=== PATIENT | female | born 1995 | race Two or more races ===

== ENCOUNTER 2024-05-21 19:42 | Inpatient (IN) | payer MEDICAID ==
[2024-05-21] MEDS ORDERED: Sodium Chloride 0.9% 10 ML Syringe FLUSH PRN (20:41)
[2024-05-21] MEDS ORDERED: Sodium Chloride 0.9% 2.5 ML Syringe FLUSH PRN (20:41)
[2024-05-21] MEDS ORDERED: PHENobarbitaL sodium 260 MG in Sodium Chloride 0.9% 100 ML IV ONE (20:50)
[2024-05-21] MEDS: Ketorolac 30 MG/ML SDV IVPUSH ONE (21:03)
[2024-05-21] MEDS: Ondansetron 4 MG/2 ML SDV IVPUSH ONE (21:03)
[2024-05-21] MEDS: Sodium Chloride 0.9% 1,000 ML IV ONE (21:03)
[2024-05-21] MEDS: PHENobarbitaL sodium 130 MG in Sodium Chloride 0.9% 100 ML IV ONE (21:08)
[2024-05-21 21:16] LABS: AMPHETAMINES SCREEN, URINE NEGATIVE (CUTOFF=500); BARBITURATE SCREEN,URINE NEGATIVE (CUTOFF=200); BENZODIAZEPINES SCREEN,URINE PRESUMPTIVE POSITIVE (CUTOFF=150); BILIRUBIN,URINE NEGATIVE (NEGATIVE); BUPRENORPHINE SCREEN,URINE PRESUMPTIVE POSITIVE (CUTOFF=10); COLOR,URINE YELLOW; GLUCOSE,URINE NEGATIVE (NEGATIVE); KETONES,URINE NEGATIVE (NEGATIVE); LEUKOCYTE ESTERASE,URINE TRACE (NEGATIVE); METHADONE SCREEN, URINE NEGATIVE (CUTOFF=200); METHAMPHETAMINES SCREEN, URINE NEGATIVE (CUTOFF=500); NITRITE,URINE NEGATIVE (NEGATIVE); OCCULT BLOOD,URINE NEGATIVE (NEGATIVE); OXYCODONE SCREEN,URINE NEGATIVE (CUT0FF=100); PCP SCREEN,URINE NEGATIVE (CUTOFF=25); PROTEIN,URINE NEGATIVE (NEGATIVE); THC SCREEN,URINE 20 NG/ML NEGATIVE (CUTOFF=50); UROBILINOGEN,URINE 0.2 EU/dL (<2.0)
[2024-05-21 21:18] LABS: APPEARANCE,URINE SLT CLOUDY
[2024-05-21 21:19] LABS: BACTERIA,URINE FEW (NEGATIVE); EPITHELIAL CELLS,URINE MODERATE (NONE-FEW); RBC,URINE 0-2 (0-2/HPF)
[2024-05-21] MEDS: PHENobarbital Sodium 130 MG/ML SDV IVPUSH ONE ×3 (21:20→22:26)
[2024-05-21 21:31] LABS: BASOPHILS ABSOLUTE AUTO 0.03 K/uL (0.00-0.20); BASOPHILS PERCENT AUTO 0.6 % (0.0-1.0); EOSINOPHILS ABSOLUTE AUTO 0.03 K/uL (0.00-0.45); EOSINOPHILS PERCENT AUTO 0.6 % (0.0-6.0); HEMATOCRIT 43.8 % (37.0-47.0); LYMPHOCYTES ABSOLUTE AUTO 2.06 K/uL (1.00-4.80); LYMPHOCYTES PERCENT AUTO 39.4 % (24.0-44.0); MEAN CORPUSCULAR HEMOGLOBIN 29.2 pg (28.0-32.0); MEAN CORPUSCULAR HGB CONC 34.2 g/dL (32.0-36.0); MEAN CORPUSCULAR VOLUME 85.4 fL (83.0-99.0); MEAN PLATELET VOLUME 8.8 fL (9.4-12.3); MONOCYTES ABSOLUTE AUTO 0.46 K/uL (0.00-0.80); MONOCYTES PERCENT AUTO 8.8 % (0.0-8.0); NEUTROPHILS ABSOLUTE AUTO 2.65 K/uL (1.80-7.70); NEUTROPHILS PERCENT AUTO 50.6 % (41.0-71.0); PLATELET COUNT,PLT 325 K/uL (150-400); RED BLOOD CELL COUNT 5.13 M/uL (4.10-5.30); WHITE BLOOD CELL COUNT,WBC 5.23 K/uL (3.9-11.3)
[2024-05-21 21:44] LABS: BILIRUBIN TOTAL 0.4 mg/dL (0.2-1.0); CARBON DIOXIDE,CO2 23.8 mmol/L (21.0-32.0); CREATININE 0.7 mg/dL (0.6-1.0); EST CRCL DRUG DOSING (CG) 102.4 mL/min; MAGNESIUM 1.5 mg/dL (1.8-2.4); POTASSIUM,K 3.2 mmol/L (3.5-5.1)
[2024-05-21] MEDS: Thiamine 200 MG/2 ML MDV IVPUSH ONE (22:26)
[2024-05-21] MEDS: Magnesium Sulfate/Water Premix 2 GM in Premix Bag 1 BAG IV ONE (22:26)
[2024-05-22] MEDS: Pantoprazole 40 MG Vial ONE (00:25)
[2024-05-22] MEDS: LORazepam 2 MG/ML SDV IVPUSH PRN (00:25)
[2024-05-22] MEDS: Sodium Chloride 0.9% 1,000 ML IV SCH (00:27)
[2024-05-22] MEDS: Potassium Chloride 10 MEQ in Premix Bag 1 BAG IV SCH (02:10)
[2024-05-22] MEDS: Enoxaparin 40 MG/0.4 ML Syringe SUBCUT SCH (02:12)
[2024-05-22] MEDS: PHENobarbital Sodium 130 MG/ML SDV IVPUSH PRN (04:26)
[2024-05-22 07:06] LABS: ALBUMIN 3.1 g/dL (3.4-5.0); BILIRUBIN TOTAL 0.5 mg/dL (0.2-1.0); CARBON DIOXIDE,CO2 24.3 mmol/L (21.0-32.0); CREATININE 0.7 mg/dL (0.6-1.0); EST CRCL DRUG DOSING (CG) 98.09 mL/min; MAGNESIUM 1.6 mg/dL (1.8-2.4); PHOSPHORUS 3.4 mg/dL (2.6-4.7); PROTEIN TOTAL,TP 6.1 g/dL (6.4-8.2)
[2024-05-22] MEDS ORDERED: PHENobarbital 32.4 MG Tab PO PRN (07:07)
[2024-05-22] MEDS ORDERED: PHENobarbitaL sodium 260 MG in Sodium Chloride 0.9% 100 ML IV PRN (07:08)
[2024-05-22] MEDS: PHENobarbital 32.4 MG Tab PO PRN (08:41)
[2024-05-22] MEDS: Folic Acid 1 MG Tab PO SCH (08:42)
[2024-05-22] MEDS: Thiamine 200 MG/2 ML MDV IVPUSH SCH (08:44)
[2024-05-22] MEDS: Pantoprazole 40 MG in Sodium Chloride 0.9% 10 ML IVPUSH SCH (08:47)
[2024-05-22] MEDS: Magnesium Sulfate/Water Premix 2 GM in Premix Bag 1 BAG IV ONE (08:50)
[2024-05-22] MEDS: BUPROPION SR 150 MG TABLET PO SCH (09:05)
[2024-05-22] MEDS: Diphtheria,Pertussis(Acell),Tetanus Vaccine 0.5 ML Syringe IM ONE (09:18)
[2024-05-22] MEDS: FLU (Flulaval Triv) 24-25(6MOS UP)/PF 45 MCG/0.5 ML Syringe IM ONE (09:18)
[2024-05-22] MEDS: Buprenorphine/Naloxone 8-2 MG Tab.SL SL SCH (11:09)
[2024-05-22] MEDS ORDERED: Buprenorphine/Naloxone 8-2 MG Tab.SL SL SCH (14:00)
[2024-05-22] MEDS ORDERED: Pantoprazole 40 MG in Sodium Chloride 0.9% 10 ML IVPUSH ONE (23:50)
[2024-05-23] MEDS: PHENobarbital 32.4 MG Tab PO PRN (02:48)
[2024-05-23 06:17] LABS: BASOPHILS ABSOLUTE AUTO 0.03 K/uL (0.00-0.20); BASOPHILS PERCENT AUTO 0.6 % (0.0-1.0); EOSINOPHILS ABSOLUTE AUTO 0.09 K/uL (0.00-0.45); EOSINOPHILS PERCENT AUTO 1.9 % (0.0-6.0); HEMATOCRIT 37.9 % (37.0-47.0); HEMOGLOBIN 12.6 g/dL (12.0-16.0); LYMPHOCYTES ABSOLUTE AUTO 1.66 K/uL (1.00-4.80); LYMPHOCYTES PERCENT AUTO 34.4 % (24.0-44.0); MEAN CORPUSCULAR HEMOGLOBIN 29.4 pg (28.0-32.0); MEAN CORPUSCULAR HGB CONC 33.2 g/dL (32.0-36.0); MEAN CORPUSCULAR VOLUME 88.3 fL (83.0-99.0); MEAN PLATELET VOLUME 9.9 fL (9.4-12.3); MONOCYTES ABSOLUTE AUTO 0.36 K/uL (0.00-0.80); MONOCYTES PERCENT AUTO 7.5 % (0.0-8.0); NEUTROPHILS ABSOLUTE AUTO 2.68 K/uL (1.80-7.70); NEUTROPHILS PERCENT AUTO 55.6 % (41.0-71.0); PLATELET COUNT,PLT 218 K/uL (150-400); RED BLOOD CELL COUNT 4.29 M/uL (4.10-5.30); WHITE BLOOD CELL COUNT,WBC 4.82 K/uL (3.9-11.3)
[2024-05-23 07:04] LABS: BILIRUBIN TOTAL 0.4 mg/dL (0.2-1.0); CALCIUM 8.2 mg/dL (8.5-10.1); CARBON DIOXIDE,CO2 23.9 mmol/L (21.0-32.0); CREATININE 0.8 mg/dL (0.6-1.0); EST CRCL DRUG DOSING (CG) 85.83 mL/min; MAGNESIUM 1.5 mg/dL (1.8-2.4); PHOSPHORUS 3.5 mg/dL (2.6-4.7); POTASSIUM,K 4.4 mmol/L (3.5-5.1); PROTEIN TOTAL,TP 6.1 g/dL (6.4-8.2)
[2024-05-23] MEDS ORDERED: Sodium Chloride 0.9% 2.5 ML Syringe FLUSH PRN (09:31)
[2024-05-23] MEDS ORDERED: Sodium Chloride 0.9% 10 ML Syringe FLUSH PRN (09:31)
[2024-05-23] MEDS: LORazepam 0.5 MG Tab PO ONE (09:57)
[2024-05-23] MEDS: Magnesium Sulfate/Water Premix 4 GM in Premix Bag 1 BAG IV ONE (09:58)
[2024-05-23] MEDS: Sucralfate Suspension 1 GM/10 ML Cup PO SCH (13:44)
[2024-05-24 05:32] LABS: BASOPHILS ABSOLUTE AUTO 0.02 K/uL (0.00-0.20); BASOPHILS PERCENT AUTO 0.4 % (0.0-1.0); EOSINOPHILS ABSOLUTE AUTO 0.15 K/uL (0.00-0.45); HEMATOCRIT 41.3 % (37.0-47.0); HEMOGLOBIN 13.7 g/dL (12.0-16.0); IMMATURE GRAN ABSOLUTE AUTO 0.01 K/uL (0.00-0.05); IMMATURE GRAN PERCENT AUTO 0.2 % (0.0-0.4); LYMPHOCYTES ABSOLUTE AUTO 1.47 K/uL (1.00-4.80); LYMPHOCYTES PERCENT AUTO 29.3 % (24.0-44.0); MEAN CORPUSCULAR HEMOGLOBIN 29.1 pg (28.0-32.0); MEAN CORPUSCULAR HGB CONC 33.2 g/dL (32.0-36.0); MEAN CORPUSCULAR VOLUME 87.9 fL (83.0-99.0); MEAN PLATELET VOLUME 9.4 fL (9.4-12.3); NEUTROPHILS ABSOLUTE AUTO 2.87 K/uL (1.80-7.70); NEUTROPHILS PERCENT AUTO 57.1 % (41.0-71.0); PLATELET COUNT,PLT 261 K/uL (150-400); WHITE BLOOD CELL COUNT,WBC 5.02 K/uL (3.9-11.3)
[2024-05-24 05:58] LABS: A/G RATIO 0.9 (0.9-1.6); ALBUMIN 3.2 g/dL (3.4-5.0); BILIRUBIN TOTAL 0.4 mg/dL (0.2-1.0); CALCIUM 9.2 mg/dL (8.5-10.1); CARBON DIOXIDE,CO2 28.9 mmol/L (21.0-32.0); CREATININE 0.7 mg/dL (0.6-1.0); EST CRCL DRUG DOSING (CG) 98.09 mL/min; MAGNESIUM 1.8 mg/dL (1.8-2.4); PHOSPHORUS 4.5 mg/dL (2.6-4.7); POTASSIUM,K 4.3 mmol/L (3.5-5.1); PROTEIN TOTAL,TP 6.9 g/dL (6.4-8.2)
[2024-05-24] MEDS: Thiamine 100 MG Tab PO SCH (09:33)
[2024-05-24] MEDS: Polyethylene Glycol 3350 Powder 17 GM Packet PO SCH (13:54)
[2024-05-24] MEDS ORDERED: Pantoprazole 40 MG in Sodium Chloride 0.9% 10 ML IVPUSH SCH (18:00)
== END 2024-05-24 16:17 | disposition home or self-care (01) | DRG 897 ==
LOC: MW.ED 19:42 → MW.ICU 22:33 → MW.MS 05-23 10:00
PROVIDERS: ADMIT Internal Medicine; ATTEND Internal Medicine
DX: F10.132 Alcohol abuse with withdrawal with perceptual disturbance (principal); F11.20 Opioid dependence, uncomplicated; K29.20 Alcoholic gastritis without bleeding; F32.A Depression, unspecified; E83.42 Hypomagnesemia; Z90.49 Acquired absence of other specified parts of digestive tract; Z90.89 Acquired absence of other organs; Z79.899 Other long term (current) drug therapy
CPT/HCPCS: 36415; 76705; 76705-26; 80053; 80305-QW; 80307; 81001; 83690; 83735; 84100; 84703; 85025; 96361; 96374; 96375; 96376; 99283; 99285-25; A9270-GY; J0574-GY; J1650; J1885; J2060; J2405; J2470; J2560; J3411; J3475; J3480; J3490; J7030

== ENCOUNTER 2024-05-27 12:51 | Emergency (ER) | payer MEDICAID ==
[2024-05-27 13:06] LABS: APPEARANCE,URINE SLT CLOUDY; BILIRUBIN,URINE NEGATIVE (NEGATIVE); COLOR,URINE YELLOW; GLUCOSE,URINE NEGATIVE (NEGATIVE); KETONES,URINE NEGATIVE (NEGATIVE); LEUKOCYTE ESTERASE,URINE LARGE (NEGATIVE); NITRITE,URINE NEGATIVE (NEGATIVE); OCCULT BLOOD,URINE NEGATIVE (NEGATIVE); PROTEIN,URINE NEGATIVE (NEGATIVE)
[2024-05-27 13:11] LABS: BACTERIA,URINE 1+ (NEGATIVE); MUCUS,URINE LIGHT (NONE-MOD); RBC,URINE 0-1 (0-2/HPF); SQUAMOUS EPITHELIAL CELLS,UR FEW; WBC,URINE 30-40 (0-5/HPF)
== END 2024-05-27 13:23 | disposition home or self-care (01) ==
LOC: MW.ED 12:51
DX: N39.0 Urinary tract infection, site not specified (principal); B37.9 Candidiasis, unspecified; K21.9 Gastro-esophageal reflux disease without esophagitis; Z90.49 Acquired absence of other specified parts of digestive tract; Z79.899 Other long term (current) drug therapy; Z75.8 Other problems related to medical facilities and other health care
CPT/HCPCS: 81001; 87086; 99283; 99284

== ENCOUNTER 2024-06-03 13:37 | Emergency (ER) | payer MEDICAID ==
[2024-06-03 14:37] LABS: APPEARANCE,URINE CLOUDY; BILIRUBIN,URINE NEGATIVE (NEGATIVE); COLOR,URINE YELLOW; GLUCOSE,URINE NEGATIVE (NEGATIVE); KETONES,URINE NEGATIVE (NEGATIVE); LEUKOCYTE ESTERASE,URINE LARGE (NEGATIVE); NITRITE,URINE NEGATIVE (NEGATIVE); OCCULT BLOOD,URINE TRACE-INTACT (NEGATIVE); PROTEIN,URINE NEGATIVE (NEGATIVE); UROBILINOGEN,URINE 0.2 EU/dL (<2.0)
[2024-06-03 14:49] LABS: BACTERIA,URINE 3+ (NEGATIVE); EPITHELIAL CELLS,URINE MANY (NONE-FEW); TRICHOMONAS,URINE PRESENT (NEGATIVE); WBC,URINE 20-25 (0-5/HPF)
[2024-06-03 15:22] LABS: CANDIDA DNA PROBE NEGATIVE (NEGATIVE); GARDNERELLA DNA PROBE NEGATIVE (NEGATIVE)
[2024-06-03 15:23] LABS: TRICHOMONAS DNA PROBE POSITIVE (NEGATIVE)
[2024-06-03 16:08] LABS: C. TRACHOMATIS BY PCR NOT DETECTED; N. GONORRHOEAE BY PCR NOT DETECTED
== END 2024-06-03 15:52 | disposition home or self-care (01) ==
LOC: MW.ED 13:37
DX: A59.8 Trichomoniasis of other sites (principal); N39.0 Urinary tract infection, site not specified; Z75.8 Other problems related to medical facilities and other health care; K21.9 Gastro-esophageal reflux disease without esophagitis; Z90.49 Acquired absence of other specified parts of digestive tract; F17.210 Nicotine dependence, cigarettes, uncomplicated; Z79.899 Other long term (current) drug therapy
CPT/HCPCS: 81001; 81025; 87086; 87480; 87491; 87510; 87591; 87660; 99283; 99284

== ENCOUNTER 2024-09-26 18:58 | Emergency (ER) | payer MEDICAID ==
[2024-09-26] MEDS: Famotidine 20 MG Tab PO STA (21:00)
[2024-09-26] MEDS: diphenhydrAMINE 25 MG Cap PO STA (21:00)
[2024-09-26] MEDS: methylPREDNISolone Sodium Succinate 40 MG/1 ML SDV IM STA (21:00)
[2024-09-26] MEDS: Cephalexin 500 MG Cap PO STA (21:43)
== END 2024-09-26 21:46 | disposition home or self-care (01) ==
LOC: MW.ED 18:58
DX: L30.2 Cutaneous autosensitization (principal); K13.0 Diseases of lips; K21.9 Gastro-esophageal reflux disease without esophagitis; Z79.899 Other long term (current) drug therapy; Z75.8 Other problems related to medical facilities and other health care
CPT/HCPCS: 96372; 99283; A9270; J2919

== ENCOUNTER 2024-10-27 05:57 | Emergency (ER) | payer MEDICAID ==
[2024-10-27 06:41] LABS: BASOPHILS ABSOLUTE AUTO 0.01 K/uL (0.00-0.20); BASOPHILS PERCENT AUTO 0.2 % (0.0-1.0); EOSINOPHILS ABSOLUTE AUTO 0.01 K/uL (0.00-0.45); EOSINOPHILS PERCENT AUTO 0.2 % (0.0-6.0); HEMATOCRIT 43.7 % (37.0-47.0); HEMOGLOBIN 14.8 g/dL (12.0-16.0); LYMPHOCYTES ABSOLUTE AUTO 1.45 K/uL (1.00-4.80); LYMPHOCYTES PERCENT AUTO 35.4 % (24.0-44.0); MEAN CORPUSCULAR HEMOGLOBIN 28.6 pg (28.0-32.0); MEAN CORPUSCULAR HGB CONC 33.9 g/dL (32.0-36.0); MEAN CORPUSCULAR VOLUME 84.4 fL (83.0-99.0); MEAN PLATELET VOLUME 8.8 fL (9.4-12.3); MONOCYTES ABSOLUTE AUTO 0.43 K/uL (0.00-0.80); MONOCYTES PERCENT AUTO 10.5 % (0.0-8.0); NEUTROPHILS PERCENT AUTO 53.7 % (41.0-71.0); PLATELET COUNT,PLT 291 K/uL (150-400); RED BLOOD CELL COUNT 5.18 M/uL (4.10-5.30)
[2024-10-27 07:05] LABS: ALBUMIN 3.8 g/dL (3.4-5.0); BILIRUBIN TOTAL 0.9 mg/dL (0.2-1.0); CALCIUM 9.5 mg/dL (8.5-10.1); CARBON DIOXIDE,CO2 28.6 mmol/L (21.0-32.0); CREATININE 0.7 mg/dL (0.6-1.0); EST CRCL DRUG DOSING (CG) 97.21 mL/min; POTASSIUM,K 3.9 mmol/L (3.5-5.1); PROTEIN TOTAL,TP 7.7 g/dL (6.4-8.2)
[2024-10-27] MEDS: Sodium Chloride 0.9% 1,000 ML IV ONE (07:54)
[2024-10-27] MEDS: Prochlorperazine 10 MG/2 ML SDV IVPUSH ONE (07:55)
[2024-10-27] MEDS: Ketorolac 30 MG/ML SDV IVPUSH ONE (07:55)
[2024-10-27] MEDS: diphenhydrAMINE 50 MG/ML SDV IVPUSH ONE (07:55)
[2024-10-27] MEDS: Iopamidol 755 MG/ML 500 ML Multipack Bottle IVPUSH STA (08:32)
[2024-10-27] MEDS: Acetaminophen/Butalbital/Caffeine 325-50-40 MG Tab PO ONE (09:46)
== END 2024-10-27 10:02 | disposition home or self-care (01) ==
LOC: MW.ED 05:57
DX: R51.9 Headache, unspecified (principal); Z79.899 Other long term (current) drug therapy
CPT/HCPCS: 36415; 70450; 70496; 70498; 80053; 84702; 85025; 96361; 96374; 96375; 99284; J0780; J1200; J1885; J7030; Q9967; 99283